=== PATIENT | male | born 1975 | race Caucasian/White ===

== ENCOUNTER 2017-11-08 12:48 | Emergency (ER) | payer MEDICAID | END 2017-11-08 14:58 | disposition home or self-care (01) | LOC: FTE 12:48 | DX: S99.912A Unspecified injury of left ankle, initial encounter (principal); M54.9 Dorsalgia, unspecified; Y03.0XXA Assault by being hit or run over by motor vehicle, initial encounter; Y92.9 Unspecified place or not applicable | CPT/HCPCS: 72100; 73610; 99284-25 ==